=== PATIENT | male | born 1990 | race Caucasian/White ===

== ENCOUNTER 2021-01-18 08:31 | Emergency (ER) | payer OTHER ==
[2021-01-18] MEDS ORDERED: LACTATED RINGERS 1,000 ML IV STA (08:48)
[2021-01-18] MEDS ORDERED: HALOPERIDOL 5 MG/ML VIAL IVP ONE (08:48)
[2021-01-18] MEDS ORDERED: SODIUM CHLORIDE 0.9% 1,000 ML IV STA (08:48)
--- NOTE | 2021-01-18 08:49 | ED Physician Documentation ---
PD HPI ABD PAIN - Stated complaint Stated Complaint: VOMITING - Chief complaint Chief Complaint: Abd Pain - History obtained from History obtained from: Patient - Additional information Additional information: 30-year-old gentleman presents for nausea and vomiting. He has had it for about 4 days, worse over the last 48 hours. Was seen at [facility] and got IV Reglan. That made him anxious. Got a prescription for same which is unhelpful. Diagnosed with cannabinoid hyperemesis. He has been using marijuana daily for about the last year but stopped about 72 hours ago because of the diagnosis. Has nonradiating upper abdominal pain. No blood in the vomit. No diarrhea. No fevers. No history of abdominal surgeries. Review of Systems Ten Systems: 10 systems reviewed and negative Constitutional: denies: Fever, Chills Nose: denies: Rhinorrhea / runny nose, Congestion Cardiac: denies: Chest pain / pressure, Palpitations Respiratory: denies: Dyspnea, Cough PD PAST MEDICAL HISTORY - Past Medical History Past Medical History: Yes Cardiovascular: Hypertension Respiratory: None Neuro: None Endocrine/Autoimmune: None GI: None : None HEENT: None Psych: Anxiety Musculoskeletal: None Derm: None - Past Surgical History Past Surgical History: Yes Ortho: Other - Present Medications Home Medications: Ambulatory Orders Medication Instructions Recorded Confirmed Lisinopril [Zestril] 20 mg PO DAILY 01/18/21 01/18/21 Metoclopramide [Reglan] 10 mg PO Q6H PRN 01/18/21 01/18/21 haloperidoL [Haldol] 1 mg PO Q8H PRN #10 tablet 01/18/21 - Allergies Allergies/Adverse Reactions: Allergies Allergy/AdvReac Type Severity Reaction Status Date / Time No Known Drug Allergies Allergy Verified 01/18/21 08:34 - Social History Does the pt smoke?: No Smoking Status: Former smoker Does the pt drink ETOH?: No Does the pt have substance abuse?: Yes Substance Use and Type: Marijuana - Immunizations Immunizations are current?: Yes PD ED PE NORMAL - Vitals Vital signs reviewed: Yes - General General: Alert and oriented X 3, No acute distress - Abdomen Abdomen: Normal bowel sounds, Soft, Non tender - Derm Derm: Normal color, Warm and dry - Neuro Neuro: Alert and oriented X 3, Normal speech Results - Vitals Vitals: Vital Signs - 24 hr 01/18/21 01/18/21 08:35 09:56 Temperature 36.8 C 36.5 C Heart Rate 77 62 Respiratory 18 16 Rate Blood Pressure 129/77 125/76 O2 Saturation 96 100 Oxygen O2 Source Room air - Labs Labs: Laboratory Tests 01/18/21 09:05 Sodium 138 Potassium 3.9 Chloride 95 L Carbon Dioxide 30 Anion Gap 13.0 BUN 18 Creatinine 1.1 Estimated GFR (MDRD) 79 L Glucose 126 H Calcium 10.1 Total Bilirubin 1.5 H AST 30 ALT 30 Alkaline Phosphatase 43 Total Protein 8.4 H Albumin 5.3 Globulin 3.1 Albumin/Globulin Ratio 1.7 Lipase 22 PD MEDICAL DECISION MAKING - ED course ED course: 30-year-old gentleman presents with vomiting, benign exam. He may have cannabinoid hyperemesis but if so this is his first manifestation. After 2 L of IV fluid and some IV Haldol he was basically symptom-free and passed p.o. challenge. Departure - Departure Disposition: 01 Home, Self Care Clinical Impression: Vomiting Qualifiers: Vomiting type: unspecified Vomiting Intractability: non-intractable Nausea presence: with nausea Qualified Code(s): R11.2 - Nausea with vomiting, unspecified Instructions: ED Nausea Vomiting Prescriptions: haloperidoL [Haldol] 1 mg PO Q8H PRN #10 tablet PRN Reason: Nausea / Vomiting Comments: Call your doctor to arrange a follow-up appointment, make the next available appointment. In the interim, return anytime if worse or if new symptoms develop.
[2021-01-18 09:24] LABS: ALBUMIN 5.3 g/dL (3.2-5.5); ALBUMIN/GLOBULIN RATIO 1.7 (1.0-2.2); BILIRUBIN,TOTAL 1.5 mg/dL (0.2-1.0); CALCIUM 10.1 mg/dL (8.5-10.3); CREATININE 1.1 mg/dL (0.6-1.2); POTASSIUM 3.9 mmol/L (3.5-5.0); TOTAL PROTEIN 8.4 g/dL (6.7-8.2)
[2021-01-18 10:38] VITALS: BP 131/72
== END 2021-01-18 10:44 | disposition home or self-care (01) ==
LOC: ED 08:31
DX: R11.2 Nausea with vomiting, unspecified (principal); I10 Essential (primary) hypertension; Z87.891 Personal history of nicotine dependence
CPT/HCPCS: 36415; 80053; 83690; 96361; 96374; 99283; J7120